=== PATIENT | female | born 1960 | race Caucasian/White ===

== ENCOUNTER 2023-08-11 06:28 | Day surgery (SDC) | payer OTHER, BC, SELFPAY ==
--- NOTE | 2023-07-07 11:39 | CM ---
Patient is scheduled for an elective R TKR on 08/11/23- she is a same day patient. Spoke with patient prior to surgery. Introduced role of Orthopedic Navigator. Patient reports that she lives with her in a one story home. There is one step to
enter. She currently functions independently and uses a cane. She has a cane and rolling walker. She has never had VN services. PCP is Lilly Chan.
Discussed orthopedic program and post surgical plans. Reviewed that she will have VN services initially and will then start outpatient PT. Patient selects [facility] (preliminary referral was made to [facility] to facilitate confirmation of
benefits) for her home care needs and will go to [facility] for outpatient PT.
Patient is in agreement with plan and states that her will be home with her.
Patient will complete online education.
Plan: Orthopedic Navigator will remain available to assist with the care of patient and will reassess discharge needs after surgery.
[2023-07-25 13:34] VITALS: BMI 39.3
[2023-07-25 13:55] LABS: Hematocrit 39.7 % (37.0-47.0); Hemoglobin 14.4 g/dL (12.0-16.0); Mean Corp Hgb Conc. 36.3 g/dL (33.0-37.0); Mean Corpuscular Volume 88.2 fL (81.0-99.0); Platelet Count 240 10^3/uL (130-400); Red Cell Dist. Width 11.9 % (11.5-14.5); White Blood Cell Count 7.8 10^3/uL (4.8-10.8)
[2023-07-25 14:01] VITALS: BMI 39.3
[2023-07-25 14:22] LABS: ALT (SGPT) 25 U/L (0-35); AST (SGOT) 29 U/L (14-36); Albumin 4.7 g/dl (3.5-5.0); Alkaline Phosphatase 82 U/L (38-126); Blood Urea Nitrogen 13 mg/dl (7-17); Calcium 9.5 mg/dl (8.4-10.2); Carbon Dioxide 27 mmol/L (22-30); Chloride 105 mmol/L (98-107); Estimated Creatinine Clearance 83 ml/min; Glucose 89 mg/dl (70-99); Potassium 3.9 mmol/L (3.5-5.1); Sodium 141 mmol/L (135-145); Total Bilirubin 0.8 mg/dl (0.2-1.3); Total Protein 7.9 g/dl (6.3-8.2); eGFR > 60.00
[2023-07-25 14:29] LABS: Glycohemoglobin (HgbA1c) 5.6 % (4.0-5.6)
--- NOTE | 2023-07-31 14:19 | W.PREADMORTH ---
Ortho Preadmission Testing
-
Abnormal EKG noted pre-op.
When in comparison to the EKG of 2017, nonspecific T wave abnormality now evident in anterior leads; otherwise, there was no significant change.
She has had 2 surgeries since her previous EKG, an adenoidectomy and hysterectomy, both of which she has tolerated well.
Only significant cardiac history is hyperlipidemia. She has no h/o HTN, CAD/OK, carotid artery disease, PVD, CVA, CKD, or DM.
Vital signs stable pre-op and physical exam WNL.
She is asymptomatic and reportedly able to preform >4 METS.
Spoke to pt's PCP as well re: abnormal EKG. She is cleared w/o the need for further cardiac testing.
Given this, the patient is stable for her upcoming R TKA 08/11/23.
[2023-08-11] VITALS (11 sets, daily range): BP systolic 129–151; BP diastolic 72–103; PULSE 84; O2SAT 95
[2023-08-11] MEDS: CELEBREX 200 MG PO (08:40)
[2023-08-11] MEDS: TYLENOL 650 MG PO (08:41)
[2023-08-11] MEDS: NORMOSOL-R 1000 IV ×2 (08:50→13:20)
--- NOTE | 2023-08-11 12:43 | CM ---
Patient had planned R TKR today. Met with patient at bedside to review discharge plans. Patient will be returning home today with services through [facility]. On , 08/13, patient will start outpatient PT at [facility]. Reviewed MD follow up in two
weeks and patient has already scheduled her appointment.
Patient has her rolling walker here with her.
PT and [facility] were kept updated as to progress and discharge plans.
[2023-08-11] MEDS: ANCEF 5 IV (14:58)
== END 2023-08-11 15:31 | disposition home health service (06) ==
LOC: SDS 06:28
PROVIDERS: ATTENDING PHYSICIAN Specialist; FAMILY PHYSICIAN Nurse Practitioner; OTHER PHYSICIAN Physician Assistant
DX: M17.11 Unilateral primary osteoarthritis, right knee (principal); E66.9 Obesity, unspecified; Z68.39 Body mass index [BMI] 39.0-39.9, adult
CPT/HCPCS: 27447; C1776; C1713; 36415; 73560; 80053; 83036; 85027; 87070; 93005; 97116; 97161